=== PATIENT | female | born 2000 | race African-American/Black ===

== ENCOUNTER 2024-06-28 00:42 | Emergency (ER) | payer SELFPAY ==
[~2024-06-28] VITALS: Ht 170.2 cm; Wt 78.9 kg
[2024-06-28 00:59] VITALS: O2SAT 100
[2024-06-28 01:05] VITALS: BP 119/76; PULSE 67; RESP 18; TEMP 98.1; O2SAT 99
== END 2024-06-28 03:03 | disposition home or self-care (01) ==
LOC: ER 00:42
DX: S60.453A Superficial foreign body of left middle finger, initial encounter (principal); Z98.890 Other specified postprocedural states; X58.XXXA Exposure to other specified factors, initial encounter; Y93.89 Activity, other specified; Y92.89 Other specified places as the place of occurrence of the external cause; Y99.8 Other external cause status
CPT/HCPCS: 99281